=== PATIENT | female | born 1960 | race Caucasian/White ===

== ENCOUNTER 2023-05-27 09:27 | Outpatient (CLI) | payer OTHER | END 2023-05-27 09:28 | disposition home or self-care (01) | LOC: BICMAMMO 09:27 | PROVIDERS: ATTEND Specialist | DX: N60.01 Solitary cyst of right breast (principal); N63.10 Unspecified lump in the right breast, unspecified quadrant | CPT/HCPCS: 77066; G0279 ==

== ENCOUNTER 2024-05-30 14:13 | Outpatient (CLI) | payer OTHER | END 2024-05-30 14:14 | disposition home or self-care (01) | LOC: BICMAMMO 14:13 | PROVIDERS: ATTEND Specialist | DX: N60.01 Solitary cyst of right breast (principal) | CPT/HCPCS: 77066; G0279 ==